=== PATIENT | male | born 1980 | race Caucasian/White ===

== ENCOUNTER → 2016-09-25 | Outpatient (CLI) | payer OTHER ==
--- NOTE | 2016-09-25 14:32 | US ---
Ultrasound of the Abdomen Limited History: Palpable lump in the right upper quadrant of the abdomen. R22.9 FINDINGS: Palpable abnormality in the right upper quadrant of the abdomen to the right of midline was imaged. No evidence of abdominal wall hernia identified. Questionable heterogenous soft tissue lesio n measuring 4.5 x 3.4 x 1.7 cm. This appears subcutaneous and anterior to the muscle wall. IMPRESSION: 1. No evidence of right upper quadrant abdominal wall hernia. 2. Questionable subcutaneous 4.5 x 3.4 x 1.7 cm mass, which may represent lipoma or liposarcoma. 3. Recommend MRI of the abdomen for further evaluation.
== END ==
LOC: FIMAGING 09:16
PROVIDERS: ATTEND Family Medicine
DX: R19.01 Right upper quadrant abdominal swelling, mass and lump (principal)